=== PATIENT | female | born 1970 | race African-American/Black ===

== ENCOUNTER 2021-11-14 12:06 | Emergency (ER) | payer MEDICARE, SELFPAY ==
--- NOTE | ~2021-11-14 | XR_ITS ---
EXAMINATION: XR ribs RT 2V INDICATION: Right rib pain TECHNIQUE: 3 views of the right ribs were obtained. COMPARISON: None. FINDINGS: No displaced rib fracture is identified. The visualized portions of the lungs are clear. Th e heart size appears normal. There is S shaped curvature of the spine. IMPRESSION: 1. No displaced rib fracture identified. Reviewed, dictated and finalized at location A.
[2021-11-14 12:18] VITALS: BP 122/74; PULSE 66; RESP 20; TEMP 36.3; O2SAT 100
--- NOTE | 2021-11-14 12:34 | ED.GENADULT ---
HPI - General Adult General Stated complaint: pain on rt breast Time Seen by Provider: 11/14/21 12:35 Source: patient and RN notes reviewed Mode of arrival: ambulatory Limitations: no limitations History of Present Illness HPI narrative: 51-year-old female presents with concern for right breast pain. She denies injury or trauma. She denies warmth, redness in the breast. She denies history of problems with her breast. She is not breast-feeding. She reports she last had a mammogram 3 years ago which she recalls to be normal. Related Data Home Medications Medication Instructions Recorded Confirmed Unable to Obtain Home Medications 11/14/21 11/14/21 Allergies Allergy/AdvReac Type Severity Reaction Status Date / Time No Known Allergies Allergy Verified 11/14/21 12:39 Review of Systems Review of Systems: CONSTITUTIONAL: Denies malaise, chills, sweats, or fever. ENT: Denies rhinorrhea, congestion, sinus pain, otalgia or sore throat. CARDIOVASCULAR: Denies chest pain, palpitations, or edema. RESPIRATORY: Denies cough or dyspnea. GASTROINTESTINAL: Denies abdominal pain, nausea, vomiting SKIN: Denies rash or itching. Denies redness, warmth, open skin MUSCULOSKELETAL: Denies back pain, joint pain, or myalgia. Reports pain under the right breast, denies nipple drainage All systems reviewed & are unremarkable except as noted in HPI and below PMFSH Comments At time of signature, agree with nursing past medical, surgical, social and family history. There is no relevant family history pertinent to the presenting complaint Exam Narrative: GENERAL: Well-appearing, well-nourished, and in no acute distress. HEAD: Normocephalic EYES: PERRLA, sclera clear ENT: Nares clear. Mucous membranes moist. NECK: Supple. CHEST: No respiratory distress. Clear to auscultation. No bony deformities, no asymmetry. Speaks in full sentences. Tenderness to the right rib cage near her ribs 5, 6, 7. No erythema, warmth, tenderness noted to the breast tissue, no palpable nodules HEART: Regular rate and rhythm. SKIN: Warm, dry, no visible rash. NEURO: Alert and oriented x3. PSYCH: Normal mood and affect Course Course Emergency Course: Patient is aware of diagnosis, understands and agrees to treatment plan. Anticipatory guidance given. Patient agrees to follow-up as directed and is aware of reasons to seek care at the emergency department. Portions of this record may have been created with voice recognition software Level of Care: Express Care Visit Reevaluation(s) Reevaluation #1: Advised patient that we are still waiting on final x-ray reading. Date: 11/14/21 Time: 13:23 Vital Signs Vital signs: Vital Signs Temperature 97.3 F L 11/14/21 12:18 Pulse Rate 66 11/14/21 12:18 Respiratory Rate 20 11/14/21 12:18 Blood Pressure 122/74 11/14/21 12:18 Pulse Oximetry 100 11/14/21 12:18 Oxygen Delivery Room Air 11/14/21 12:18 Temperature 97.3 F L 11/14/21 12:18 Pulse Rate 66 11/14/21 12:18 Respiratory Rate 20 11/14/21 12:18 Blood Pressure 122/74 11/14/21 12:18 Pulse Oximetry 100 11/14/21 12:18 Oxygen Delivery Room Air 11/14/21 12:18 Reviewed. Medical Decision Making MDM Narrative Medical decision making narrative: Exam findings and imaging show no acute concerns or changes; patient is non-toxic appearing and is in no distress. Patient is appropriate for outpatient treatment and follow-up. Vital Signs Vital Signs: Vital Signs Temperature 97.3 F L 11/14/21 12:18 Pulse Rate 11/14/21 12:18 Respiratory Rate 11/14/21 12:18 Blood Pressure 122/74 11/14/21 12:18 Pulse Oximetry 100 11/14/21 12:18 Oxygen Delivery Room Air 11/14/21 12:18 Temperature 97.3 F L 11/14/21 12:18 Pulse Rate 66 11/14/21 12:18 Respiratory Rate 20 11/14/21 12:18 Blood Pressure 122/74 11/14/21 12:18 Pulse Oximetry 100 11/14/21 12:18 Oxygen Delivery Room Air 11/14/21 12:18
== END 2021-11-14 13:32 | disposition home or self-care (01) ==
PROVIDERS: Emergency Provider Nurse Practitioner
DX: N64.4 Mastodynia (principal); E78.00 Pure hypercholesterolemia, unspecified; I10 Essential (primary) hypertension; F41.9 Anxiety disorder, unspecified
CPT/HCPCS: 71100; 99213; G0463

== ENCOUNTER 2022-05-22 08:14 | Emergency (ER) | payer MEDICARE, SELFPAY ==
--- NOTE | 2022-05-22 08:16 | ED.SEIZURE ---
HPI - Seizure General Chief Complaint: Seizure Stated Complaint: ambulance Time Seen by Provider: 05/22/22 08:16 Source: patient, family, EMS and RN notes reviewed Mode of arrival: EMS Limitations: no limitations History of Present Illness HPI Narrative: Patient was at home this morning and was doing the dishes when she turned her mother and says I just do not feel right. She sat down and she seemed to be less responsive. Mother called EMS because she thought she was having another stroke. EMS arrived found the patient sitting in a chair and drooling out the left side of her mouth. She has had 2 previous strokes 1 on each side. She has a constant left facial droop and right-sided weakness. EMS reported that during transport she had an episode where she again was less responsive was sitting with her eyes closed and they were twitching. There is no focal tonic clonic movement. This episode lasted about 5 minutes and then she began answering questions again but was still confused. On arrival she says that she feels back to normal. She used to be on Keppra for her seizures and since she had not had a seizure in 3 years she was taken off the medication. She denies any recent illness, drug use or alcohol use. MD complaint: possible seizure Onset (ago): hour(s) (1) Description of Episode: other -: minutes(s) (5) Witnessed: Yes - by EMS Trauma: No Seizure History: Yes Place: home Possible Precipitating Event: none Associated symptoms: denies other symptoms Treatments prior to arrival: none Related Data Home Medications Medication Instructions Recorded Confirmed amlodipine 10 mg tablet 10 mg PO DAILY 05/22/22 05/22/22 aspirin 81 mg tablet 81 mg PO DAILY 05/22/22 05/22/22 hydrochlorothiazide 25 mg tablet 25 mg PO DAILY 05/22/22 05/22/22 lisinopril 40 mg tablet 40 mg PO DAILY 05/22/22 05/22/22 paroxetine HCl 10 mg tablet 10 mg PO DAILY 05/22/22 05/22/22 pravastatin 40 mg tablet 40 mg PO DAILY 05/22/22 05/22/22 Allergies Allergy/AdvReac Type Severity Reaction Status Date / Time No Known Allergies Allergy Verified 05/22/22 08:45 Review of Systems Review of Systems: All systems reviewed & are unremarkable except as noted in HPI and below Constitutional: Constitutional: Denies chills and Denies fever(s) Gastrointestinal: Gastrointestinal: Denies nausea and Denies vomiting Neurologic: Denies focal weakness, Denies numbness and Denies weakness PMFSH Past Medical History Medical History (Updated 05/22/22 @ 11:11 by Jose Luis Mendoza MD) CVA (cerebral vascular accident) Depression Hyperlipidemia Hypertension Seizure disorder Social History Social History (Updated 05/22/22 @ 11:11 by Jose Luis Mendoza MD) Smoking status: Never smoker Alcohol intake: never Substance use: never Exam Const: General: healthy appearing, no acute distress and alert Nutritional Appearance: well nourished Limitations: no limitations HENMT: Head: normal to inspection Ears: external ears normal Face/Nose/Sinus: Normal external nose present Face and sinus: normal facial exam Mouth: Yes moist mucous membranes Eyes: Conjunctivae: conjunctivae normal Pupils: Equal, round and reactive pupils present EOM: EOMs intact bilaterally Other: left facial droop with drooping of the left upper eyelid which is baseline for her. Neck: Neck: normal visual inspection Resp: Effort & Inspection: normal respiratory effort Auscultation: clear to auscultation bilaterally Cardio: Rate: regular rate Rhythm: regular rhythm GI: GI Palp: Yes Soft to palpation and No Tenderness to palpation present (GI) Auscultation: normal bowel sounds Skin: General skin exam: normal color Rashes: no rashes Neuro: General: patient oriented x3 and moves all extremities Speech: Abnormal speech present ( Slow verbal responses due to previous CVA) Other: patient has chronic weakness in her right upper and lower extremity from previous CVA. She says that raza
[2022-05-22 08:17] VITALS: BP 125/79; PULSE 58; RESP 17; TEMP 36.6; O2SAT 100
[2022-05-22 08:31] VITALS: BP 125/79; PULSE 57; RESP 16; TEMP 36.6; O2SAT 100
[2022-05-22] MEDS: levETIRAcetam 1000MG/NACL100ML 1,000 MG/100 ML BAG 400 MG IVPB (08:49)
[2022-05-22 08:58] LABS: Basophils Absolute Auto 0.02 K/mm3 (0.00-0.10); Basophils Percent Auto 0.3 % (0.0-1.0); Eosinophils Absolute Auto 0.16 K/mm3 (0.02-0.50); Eosinophils Percent Auto 2.5 % (1.0-6.0); Hemoglobin 13.3 g/dL (12.0-15.0); Immature Granulocyte Absolute 0.02 K/mm3 (0.00-0.00); Immature Granulocyte Percent A 0.3 % (0.0-0.0); Lymphocytes Absolute Auto 2.41 K/mm3 (1.10-4.50); Lymphocytes Percent Auto 37.6 % (18.0-42.0); Mean Corpuscular HGB Conc 31.7 g/dL (32.0-36.0); Mean Corpuscular Hemoglobin 29.8 pg (27.0-31.0); Mean Platelet Volume 11.5 fl (9.2-11.8); Monocytes Absolute Auto 0.51 K/mm3 (0.10-0.90); Neutrophils Absolute Auto 3.3 K/mm3 (1.7-7.2); Neutrophils Percent Auto 51.3 % (50.0-70.0); Platelet Count Result 260 K/mm3 (150-420); Red Blood Count 4.47 M/mm3 (4.20-5.40); Red Cell Distribution Width 12.4 % (11.6-14.4); White Blood Count 6.4 K/mm3 (4.8-10.8)
[2022-05-22 09:12] LABS: Alanine Aminotransferase 20 U/L (14-59); Albumin Level 3.5 g/dL (3.4-5.0); Alkaline Phosphatase 75 U/L (46-116); Anion Gap 8 mmol/L (8-16); Aspartate Amino Transferase 19 U/L (15-37); Bilirubin,Total 0.3 mg/dL (0.00-1.00); Blood Urea Nitrogen 9 mg/dL (7-18); Calcium 9.1 mg/dL (8.5-10.1); Carbon Dioxide 29 mmol/L (21-32); Chloride 105 mmol/L (98-108); Estimated Glomerular Filt Rate 48; Glucose 87 mg/dL (70-99); Osmolality Calculated 291 mOsm/kg (285-295); Potassium 4.1 mmol/L (3.5-5.1); Sodium 142 mmol/L (136-145); Total Protein 8.1 g/dL (6.4-8.2)
[2022-05-22 09:31] LABS: Appearance Urine Clear (Clear); Bilirubin Urine Negative (Negative); Blood Urine Negative (Negative); Glucose Urine UA Negative (Negative); Ketones Urine Negative (Negative); Leukocyte Esterase Ur Trace LEU/UL (Negative); Nitrate Urine Negative (Negative); Protein Urine Negative (Negative); Specific Grav Ur 1.015 (1.010-1.020); Urobilinogen Urine 0.2 mg/dL (0.2-1.0)
[2022-05-22 09:37] LABS: Add Urine Microscopic? YES; Color Urine Light Yellow (Yellow); Squamous Epithelial Cell Urine Few /hpf (Few); WBC Urine None seen /hpf (0-3)
[2022-05-22 09:38] LABS: Amorphous Sediment Urine Few; Amphetamine Screen Urine Negative (Negative); Bacteria Urine 1+ /hpf; Barbiturate Screen Urine Negative (Negative); Benzodiazepines Screen Urine Negative (Negative); Cannabinoid Screen Urine Negative (Negative); Cocaine Screen Urine Negative (Negative); Methadone Screen Urine Negative (Negative); Opiate Screen Urine Negative (Negative); Phencyclidine Screen Urine Negative (Negative)
[2022-05-22 10:15] VITALS: BP 124/90; PULSE 60; RESP 16; TEMP 36.5; O2SAT 100
== END 2022-05-22 10:15 | disposition home or self-care (01) ==
PROVIDERS: Emergency Provider Emergency Medicine
DX: G40.89 Other seizures (principal); Z79.899 Other long term (current) drug therapy; Z86.73 Personal history of transient ischemic attack (TIA), and cerebral infarction without residual deficits; E78.5 Hyperlipidemia, unspecified; I10 Essential (primary) hypertension
CPT/HCPCS: 36415; 80053; 80307; 81001; 85025; 96374; 99284; J1953